=== PATIENT | female | born 1980 | race Caucasian/White ===

== ENCOUNTER 2018-09-09 00:02 | Emergency (ER) | payer OTHER ==
[~2018-09-09] VITALS: Ht 154.9 cm; Wt 72.5 kg
[2018-09-09 00:04] VITALS: Ht 154.9 cm; Wt 72.5 kg
[2018-09-09] MEDS ORDERED: NITR-58 PO (01:22)
[2018-09-09] MEDS ORDERED: PHEN-537 PO (01:22)
--- NOTE | 2018-09-09 01:25 | ERD ---
ER Documentation Chief Complaint Chief Complaint dysuria w/ blod tinged urine 2 hrs ago; Jackie @ 2330 HPI Patient is a 37-year-old female presents ER for concerns of dysuria x2 hours. Patient states 3 hours ago she noticed that her urine was pink edition color. She states she continues to have dysuria and urinary frequency. She states she noticed some blood in urine that she presents the ER. Patient denies any fevers, chills, nausea, vomiting, abdominal pain. Patient denies . ROS All systems reviewed and are negative except as per history of present illness. Medications Home Meds Active Scripts Phenazopyridine Hcl* (Pyridium*) 100 Mg Tab, 100 MG PO TID PRN for URINARY PAIN, #7 TAB Prov:ARIANNA MODI PA-C 09/09/18 Nitrofurantoin Monohyd Macrocr* (Macrobid*) 100 Mg Capsr, 100 MG PO BID for 5 Days, CAP Prov:ARIANNA MODI PA-C 09/09/18 Allergies Allergies: Coded Allergies: No Known Allergy (Unverified , 12/07/13) PMhx/Soc History of Surgery: No Anesthesia Reaction: No Hx Neurological Disorder: No Hx Respiratory Disorders: No Hx Cardiac Disorders: No Hx Psychiatric Problems: No Hx Miscellaneous Medical Probl: No Hx Alcohol Use: No Hx Substance Use: No Hx Tobacco Use: No FmHx Family History: No diabetes Physical Exam Vitals Vital Signs Date Temp Pulse Resp B/P (MAP) Pulse Ox O2 O2 Flow FiO2 Time Delivery Rate 09/09/18 97.6 92 18 115/71 96 00:04 (86) Physical Exam GENERAL: Well-developed, well-nourished female. Appears in no acute distress. HEAD: Normocephalic, atraumatic. EYES: Pupils are equally reactive bilaterally. EOMs grossly intact. No conjunctival erythema. ENT: Moist mucous membranes. No uvula deviation. No kissing tonsils. NECK: Supple. No meningismus. Normal range of motion of the neck. LUNG: Clear to auscultation bilaterally. No rhonchi, wheezing, rales or coarse breath sounds. HEART: Regular rate and rhythm. No murmurs, rubs or gallops. ABDOMEN: Soft, and nondistended. Tender to palpation in the suprapubic region. Positive bowel sounds in all four quadrants. No rebound tenderness, no guarding. (-) McBurney's point tenderness. No CVA tenderness. BACK: No midline tenderness. EXTREMITIES: Equal pulses bilaterally. No peripheral clubbing, cyanosis or edema. No unilateral leg swelling. NEUROLOGIC: Alert and oriented. Moving all four extremities without any difficulty. Normal speech. Steady gait. SKIN: Normal color. Warm and dry. No rashes or lesions. Results 24 hrs Laboratory Tests Test 09/09/18 01:23 09/09/18 01:24 Bedside Urine pH (LAB) 6.0 Bedside Urine Protein (LAB) 3+ Bedside Urine Glucose (UA) Negative Bedside Urine Ketones (LAB) Negative Bedside Urine Blood 3+ Bedside Urine Nitrite (LAB) Negative Bedside Urine Leukocyte Esterase (L 1+ POC Beta HCG, Qualitative NEGATIVE Current Medications Medications Dose Sig/Jimena Start Time Status Last (Trade) Ordered Route PRN Stop Time Admin Dose Reason Admin 100 mg ONCE ONCE 09/09/18 09/09/18 Phenazopyridi PO 01:30 01:26 ne HCl 09/09/18 01:31 (Pyridium) 100 mg ONCE ONCE 09/09/18 09/09/18 Nitrofurantoi PO 01:30 01:26 n 09/09/18 01:31 Macrocrystals (Macrobid) Procedures/MDM MEDICAL DECISION MAKING: This is a 37-year-old female who presents ER for concerns of dysuria, frequency, hematuria x2 hours. Vital signs were reviewed. Patient was afebrile.UA showed 1 + leukocyte esterase, 3+ blood. Urine was negative. Given these findings, the patients presentation is most consistent with urinary tract infection. I have a much lower clinical concern for pyelonephritis, nephrolithiasis, appendicitis, diverticulitis, constipation, ectopic , PID, ovarian torsion, or tubo-ovarian abscess. PRESCRIPTIONS: Macrobid, Pyridium DISCHARGE: At this time, patient is stable for discharge and outpatient management. I have instructed the patient to follow-up with his/her primary care physician in 1-2 days. Patient should repeat UA in 2 weeks to check for resolution of urinary tr act infection. If symptoms persist, patient may need to see a specialist for further examinations and testing. I have instructed the patient to promptly return to the ER at any time for any new or worsening symptoms including increased pain, fever, nausea, vomiting, urinary changes or weakness. The patient and/or family expressed understanding of and agreement with this plan. All questions were answered. Home care instructions were provided. Disclaimer: Inadvertent spelling and grammatical errors are likely due to EHR/dictation software use and do not reflect on the overall quality of patient care. Also, please note that the electronic time recorded on this note does not necessarily reflect the actual time of the patient encounter. Departure Diagnosis: Primary Impression: UTI (urinary tract infection) Urinary tract infection type: site unspecified Hematuria presence: with hematuria Qualified Codes: N39.0 - Urinary tract infection, site not specified; R31.9 - Hematuria, unspecified Condition: Fair Patient Instructions: Understanding Urinary Tract Infections (UTIs) Additional Instructions: Call your primary care doctor TOMORROW for an appointment during the next 1-2 days.See the doctor sooner or return here if your condition worsens before your appointment time. ARIANNA MODI PA-C Sep 09, 2018 01:25
[2018-09-09] MEDS ORDERED: PHENAZOPYRIDINE 100 MG TAB PO ONE (01:30)
[2018-09-09] MEDS ORDERED: NITROFURANTOIN (SR) 100 MG CAP PO ONE (01:30)
[2018-09-09 01:54] VITALS: BP 117/83; PULSE 70; RESP 20
== END 2018-09-09 01:53 | disposition home or self-care (01) ==
LOC: FTE 00:02
DX: N39.0 Urinary tract infection, site not specified (principal)
CPT/HCPCS: 81003; 81025; Z7502; Z7610; 99283